=== PATIENT | male | born 1980 | race Caucasian/White ===

== ENCOUNTER 2016-09-22 16:58 | Emergency (ER) | payer SELFPAY ==
[2016-09-22] MEDS ORDERED: FAMOTIDINE 20 MG/2 ML VIAL IV STA (17:26)
--- NOTE | 2016-09-22 17:26 | ED ---
General Adult HPI - General Chief complaint: Allergic Reaction Stated complaint: allergic reaction Time Seen by Provider: 09/22/16 17:09 Source: patient, EMS, RN notes reviewed, old records reviewed Mode of arrival: EMS Limitations: no limitations - History of Present Illness Initial comments: This is a 36-year-old male here for evaluation of possible ALLERGIC reaction. Patient likely would actually value of mixed nuts and driving today. Patient states that his lips scold up his tongue swelled a little Of breath but he was very and itchy throughout his entire body. Patient is brought in by EMS who did give patient epi, and steroids. Patient comes in now with no complaints, states he is feeling better - Related Data Previous Rx's Medication Instructions Recorded EPINEPHrine [Epipen 2-Andrzej] 0.3 mg IM ONCE PRN #1 box 09/22/16 Famotidine [Pepcid] 40 mg PO BID #30 tab 09/22/16 hydrOXYzine HCL [Atarax] 25 mg PO TID PRN #30 tab 09/22/16 predniSONE 50 mg PO DAILY #5 tab 09/22/16 Allergies Allergy/AdvReac Type Severity Reaction Status Date / Time Penicillins Allergy Unknown Verified 09/22/16 17:03 Childhood Review of Systems ROS Statement: Those systems with pertinent positive or pertinent negative responses have been documented in the HPI. ROS Other: All systems not noted in ROS Statement are negative. Past Medical History Past Medical History: No Reported History History of Any Multi-Drug Resistant Organisms: None Reported Past Surgical History: No Surgical Hx Reported Past Psychological History: No Psychological Hx Reported Smoking Status: Current every day smoker Past Alcohol Use History: Daily Past Drug Use History: None Reported General Exam Limitations: no limitations General appearance: alert, in no apparent distress Head exam: Present: atraumatic, normocephalic, normal inspection Eye exam: Present: normal appearance, PERRL, EOMI. Absent: scleral icterus, conjunctival injection, periorbital swelling ENT exam: Present: normal exam, mucous membranes moist Neck exam: Present: normal inspection. Absent: tenderness, meningismus, lymphadenopathy Respiratory exam: Present: normal lung sounds bilaterally. Absent: respiratory distress, wheezes, rales, rhonchi, stridor Cardiovascular Exam: Present: regular rate, normal rhythm, normal heart sounds. Absent: systolic murmur, diastolic murmur, rubs, gallop, clicks GI/Abdominal exam: Present: soft, normal bowel sounds. Absent: distended, tenderness, guarding, rebound, rigid Extremities exam: Present: normal inspection, full ROM, normal capillary refill. Absent: tenderness, pedal edema, joint swelling, calf tenderness Back exam: Present: normal inspection Neurological exam: Present: alert, oriented X3, CN II-XII intact Psychiatric exam: Present: normal affect, normal mood Skin exam: Present: warm, dry, intact, normal color. Absent: rash Course Vital Signs 09/22/16 16:58 Temperature 98.6 F Pulse Rate 93 Respiratory 18 Rate Blood Pressure 137/79 O2 Sat by Pulse 98 Oximetry - Reevaluation(s) Reevaluation #1: 09/22/16 17:25 Patient remained without complaint EKG Findings - EKG Comments: EKG Findings:: EKG shows paced rhythm rate of 88, MS 146, QRS 496, QTc 392 Medical Decision Making - Medical Decision Making [facility] for evaluation of ALLERGIC reaction. Patient given medications for ALLERGY, feeling better will be discharged home Disposition Clinical Impression: Allergic reaction Disposition: HOME SELF-CARE Condition: Good Instructions: Anaphylaxis (ED) Prescriptions: EPINEPHrine [Epipen 2-Andrzej] 0.3 mg IM ONCE PRN #1 box PRN Reason: Anaphylaxis Famotidine [Pepcid] 40 mg PO BID #30 tab hydrOXYzine HCL [Atarax] 25 mg PO TID PRN #30 tab PRN Reason: Allergy Symptoms predniSONE 50 mg PO DAILY #5 tab Referrals: None,Stated [Primary Care Provider] - 1-2 days
[2016-09-22 18:18] VITALS: BP 142/78; PULSE 88; RESP 20; TEMP 98.9
== END 2016-09-22 18:19 | disposition home or self-care (01) ==
LOC: EC 16:58
DX: T78.40XA Allergy, unspecified, initial encounter (principal); F17.200 Nicotine dependence, unspecified, uncomplicated; Z88.0 Allergy status to penicillin
CPT/HCPCS: 96374; 99284